=== PATIENT | male | born 1940 | race Caucasian/White ===

== ENCOUNTER 2021-01-22 10:15 | Inpatient (IN) ==
[2021-01-22] MEDS ORDERED: Albuterol 2.5 MG/3 ML NEBULIZER IH PRN (23:54)
[2021-01-23] MEDS: *HR* Enoxaparin 100 MG/ML SYRINGE SQ SCH ×2 (05:31→18:27)
[2021-01-23 06:29] LABS: Basophils % 0.2 %; Eosinophils # 0.1 K/mcL (0.0-0.6); Eosinophils % 0.9 %; Hematocrit 31.5 % (37.5-50.1); Hemoglobin 9.5 g/dL (12.9-16.9); Lymphocytes # 1.4 K/mcL (0.6-4.6); Lymphocytes % 12.1 %; Mean Corpuscular HGB Conc 30.2 g/dL (31.6-35.5); Mean Corpuscular Hemoglobin 27.4 pg (28.0-33.3); Mean Corpuscular Volume 90.8 fL (83.0-100.0); Mean Platelet Volume 10.5 fL (9.4-12.4); Monocytes % 8.7 %; Neutrophils # 8.4 K/mcL (1.6-8.9); Nucleated Red Blood Cells 0.2 /100 WBC (0); Platelet Count 194 K/mcL (140-400); Red Blood Count 3.47 M/mcL (4.19-5.50); Red Cell Distribution Width 15.9 % (11.5-14.5); Segmented Neutrophils % 75.1 %; White Blood Count 11.2 K/mcL (4.3-11.1)
[2021-01-23 06:36] LABS: INR 1.8; Prothrombin Time 20.5 Seconds (9.4-12.1)
[2021-01-23 06:39] LABS: Activated Partial Thrombo Time 36.1 Seconds (26.0-36.0)
[2021-01-23 07:00] LABS: Alanine Aminotransferase 44 Units/L (7-52); Albumin 3.2 g/dL (3.5-5.7); Albumin/Globulin Ratio 1.5 (1.1-2.2); Alkaline Phosphatase 51 Units/L (34-104); Aspartate Amino Transferase 36 Units/L (13-39); BUN/Creatinine Ratio 26 (6-26); Bilirubin,Total 0.9 mg/dL (0.3-1.0); Blood Urea Nitrogen 20 mg/dL (8-23); Calcium 8.3 mg/dL (8.6-10.3); Carbon Dioxide 34 mEq/L (23-29); Chloride 98 mEq/L (98-107); Globulin 2.1 g/dL (2.4-3.5); Glucose 76 mg/dL (70-105); Magnesium 2.2 mg/dL (1.6-2.6); Osmolality,Calculated 285 (280-300); Potassium 3.3 mEq/L (3.5-5.1); Sodium 137 mEq/L (136-145); Total Protein 5.3 g/dL (6.4-8.9); eGFR For African Americans > 60 (> 60); eGFR For Non-African Americans > 60 (> 60)
[2021-01-23] MEDS: Sacubitril/Valsartan 49/51 MG 1 TABLET PO SCH ×2 (08:09→21:43)
[2021-01-23] MEDS: GuaiFENesin Liq 200 MG/10 ML UDC PO SCH ×2 (08:09→21:44)
[2021-01-23] MEDS: Torsemide 20 MG TABLET PO SCH ×2 (08:09→16:22)
[2021-01-23] MEDS: predniSONE 20 MG TABLET PO SCH (08:09)
[2021-01-23] MEDS: Aspirin Enteric Coated 81 MG Tablet PO SCH (08:09)
[2021-01-23] MEDS: Roflumilast [Daliresp] 500 MCG PO SCH (08:10)
[2021-01-23] MEDS: *HR* GlyBURIDE 2.5 MG TABLET PO SCH (08:10)
[2021-01-23] MEDS: Finasteride 5 MG TABLET PO SCH (08:10)
[2021-01-23] MEDS: Metoprolol XL (24 HR) Succ 25 MG TAB.ER.24H PO SCH (08:10)
[2021-01-23] MEDS: Cholecalciferol (D-3) 1,000 UNIT (25MCG) TABLET PO SCH (08:11)
[2021-01-23] MEDS ORDERED: Ketorolac 30 MG/ML VIAL IM ONE (08:34)
[2021-01-23] MEDS: Tiotropium 10 INH DOSE IH SCH (08:36)
[2021-01-23] MEDS: Budesonide/Formoterol 160/4.5 1 PUFF INH IH SCH ×2 (08:37→20:12)
[2021-01-23] MEDS ORDERED: *HR* Warfarin 3 MG TABLET PO ONE (18:00)
[2021-01-23] MEDS ORDERED: Warfarin perPT PO PRN (18:00)
[2021-01-23] MEDS ORDERED: *HR* Warfarin 5 MG TABLET PO SCH (18:00)
[2021-01-23] MEDS: *HR* Enoxaparin 120 MG/0.8 ML SYRINGE SQ SCH (18:29)
[2021-01-23 21:01] LABS: Bilirubin,Urine Negative (Negative); Blood,Urine Moderate (Negative); Clarity,Urine Slightly Cloudy (Clear); Glucose,Urine (UA) Normal (Normal); Ketones,Urine Trace mg/dL (Negative); Leukocyte Esterase,Urine Large (Negative); Nitrite,Urine Negative (Negative); PH,Urine 6.5 pH Units (5.0-8.0); Protein,Urine Negative (Neg-Trace); Urobilinogen,Urine Normal (Normal)
[2021-01-23 21:02] LABS: Color,Urine Yellow (Yellow); WBC,Urine 15-30 per hpf (0-3)
[2021-01-23 21:03] LABS: Amorphous Sediment,Urine Few per hpf (None-Few); Bacteria,Urine Few per hpf (None-Few); Hyaline Casts,Urine Few per lpf (None Seen)
[2021-01-24 05:02] LABS: Hematocrit 29.9 % (37.5-50.1); Hemoglobin 8.9 g/dL (12.9-16.9); Mean Corpuscular HGB Conc 29.8 g/dL (31.6-35.5); Mean Corpuscular Hemoglobin 27.1 pg (28.0-33.3); Mean Corpuscular Volume 91.2 fL (83.0-100.0); Mean Platelet Volume 10.5 fL (9.4-12.4); Platelet Count 166 K/mcL (140-400); Prothrombin Time 21.8 Seconds (9.4-12.1); Red Blood Count 3.28 M/mcL (4.19-5.50); Red Cell Distribution Width 15.9 % (11.5-14.5); White Blood Count 9.1 K/mcL (4.3-11.1)
[2021-01-24] MEDS: *HR* Enoxaparin 120 MG/0.8 ML SYRINGE SQ SCH ×2 (05:15→17:59)
[2021-01-24 05:17] LABS: Alanine Aminotransferase 46 Units/L (7-52); Albumin 3.1 g/dL (3.5-5.7); Albumin/Globulin Ratio 1.6 (1.1-2.2); Alkaline Phosphatase 51 Units/L (34-104); Aspartate Amino Transferase 36 Units/L (13-39); BUN/Creatinine Ratio 18 (6-26); Bilirubin,Total 0.8 mg/dL (0.3-1.0); Blood Urea Nitrogen 16 mg/dL (8-23); Calcium 7.6 mg/dL (8.6-10.3); Carbon Dioxide 37 mEq/L (23-29); Chloride 101 mEq/L (98-107); Glucose 101 mg/dL (70-105); Osmolality,Calculated 295 (280-300); Sodium 142 mEq/L (136-145); Total Protein 5.1 g/dL (6.4-8.9); eGFR For African Americans > 60 (> 60); eGFR For Non-African Americans > 60 (> 60)
[2021-01-24] MEDS: Sacubitril/Valsartan 49/51 MG 1 TABLET PO SCH ×2 (07:39→22:00)
[2021-01-24] MEDS: GuaiFENesin Liq 200 MG/10 ML UDC PO SCH ×2 (07:39→21:59)
[2021-01-24] MEDS: Aspirin Enteric Coated 81 MG Tablet PO SCH (07:39)
[2021-01-24] MEDS: predniSONE 20 MG TABLET PO SCH (07:40)
[2021-01-24] MEDS: Finasteride 5 MG TABLET PO SCH (07:40)
[2021-01-24] MEDS: Torsemide 20 MG TABLET PO SCH ×2 (07:40→17:58)
[2021-01-24] MEDS: *HR* GlyBURIDE 2.5 MG TABLET PO SCH (07:40)
[2021-01-24] MEDS: Metoprolol XL (24 HR) Succ 25 MG TAB.ER.24H PO SCH (07:40)
[2021-01-24] MEDS: Roflumilast [Daliresp] 500 MCG PO SCH (07:40)
[2021-01-24] MEDS: Budesonide/Formoterol 160/4.5 1 PUFF INH IH SCH ×2 (10:16→20:10)
[2021-01-24] MEDS: Tiotropium 10 INH DOSE IH SCH (10:16)
[2021-01-24] MEDS: Sulfamethoxazole/Trimeth DS 1 EACH TABLET PO SCH ×2 (11:29→22:00)
[2021-01-24] MEDS ORDERED: *HR* Warfarin 3 MG TABLET PO ONE (18:00)
[2021-01-24] MEDS: Sennosides/Docusate Sodium TABLET PO SCH ×2 (18:02→22:00)
[2021-01-25 04:16] LABS: INR 2.1; Prothrombin Time 23.1 Seconds (9.4-12.1)
[2021-01-25] MEDS: *HR* Enoxaparin 120 MG/0.8 ML SYRINGE SQ SCH ×2 (05:46→18:06)
[2021-01-25] MEDS: Torsemide 20 MG TABLET PO SCH ×2 (09:22→18:05)
[2021-01-25] MEDS: Finasteride 5 MG TABLET PO SCH (09:22)
[2021-01-25] MEDS: *HR* GlyBURIDE 2.5 MG TABLET PO SCH (09:22)
[2021-01-25] MEDS: Metoprolol XL (24 HR) Succ 25 MG TAB.ER.24H PO SCH (09:22)
[2021-01-25] MEDS: Aspirin Enteric Coated 81 MG Tablet PO SCH (09:22)
[2021-01-25] MEDS: Sulfamethoxazole/Trimeth DS 1 EACH TABLET PO SCH ×2 (09:23→20:10)
[2021-01-25] MEDS: Sennosides/Docusate Sodium TABLET PO SCH ×2 (09:23→20:11)
[2021-01-25] MEDS: GuaiFENesin Liq 200 MG/10 ML UDC PO SCH ×2 (09:23→20:10)
[2021-01-25] MEDS: predniSONE 20 MG TABLET PO SCH (09:23)
[2021-01-25] MEDS: Sacubitril/Valsartan 49/51 MG 1 TABLET PO SCH ×2 (09:23→20:10)
[2021-01-25] MEDS: Roflumilast [Daliresp] 500 MCG PO SCH (09:23)
[2021-01-25] MEDS: Budesonide/Formoterol 160/4.5 1 PUFF INH IH SCH ×2 (09:54→21:24)
[2021-01-25] MEDS: Tiotropium 10 INH DOSE IH SCH (09:54)
[2021-01-25] MEDS ORDERED: *HR* Warfarin 2.5 MG TABLET PO ONE (18:00)
[2021-01-26 04:53] LABS: INR 2.7; Prothrombin Time 30.3 Seconds (9.4-12.1)
[2021-01-26] MEDS: *HR* Enoxaparin 120 MG/0.8 ML SYRINGE SQ SCH ×2 (05:54→16:23)
[2021-01-26] MEDS: *HR* GlyBURIDE 2.5 MG TABLET PO SCH (08:39)
[2021-01-26] MEDS: Finasteride 5 MG TABLET PO SCH (08:40)
[2021-01-26] MEDS: predniSONE 20 MG TABLET PO SCH (08:40)
[2021-01-26] MEDS: Torsemide 20 MG TABLET PO SCH ×2 (08:40→16:22)
[2021-01-26] MEDS: Metoprolol XL (24 HR) Succ 25 MG TAB.ER.24H PO SCH (08:40)
[2021-01-26] MEDS: Sulfamethoxazole/Trimeth DS 1 EACH TABLET PO SCH ×2 (08:41→21:41)
[2021-01-26] MEDS: Cholecalciferol (D-3) 1,000 UNIT (25MCG) TABLET PO SCH (08:41)
[2021-01-26] MEDS: Aspirin Enteric Coated 81 MG Tablet PO SCH (08:41)
[2021-01-26] MEDS: Sennosides/Docusate Sodium TABLET PO SCH ×2 (08:41→21:38)
[2021-01-26] MEDS: GuaiFENesin Liq 200 MG/10 ML UDC PO SCH ×2 (08:41→21:42)
[2021-01-26] MEDS: Roflumilast [Daliresp] 500 MCG PO SCH (08:41)
[2021-01-26] MEDS: Sacubitril/Valsartan 49/51 MG 1 TABLET PO SCH ×2 (08:41→21:39)
[2021-01-26] MEDS: Tiotropium 10 INH DOSE IH SCH (08:50)
[2021-01-26] MEDS: Budesonide/Formoterol 160/4.5 1 PUFF INH IH SCH ×2 (08:51→21:08)
[2021-01-26] MEDS: ALPRAZolam 0.25 MG TABLET PO PRN (16:26)
[2021-01-27] MEDS: ALPRAZolam 0.25 MG TABLET PO PRN ×2 (00:29→22:37)
[2021-01-27 04:46] LABS: INR 2.7
[2021-01-27] MEDS: *HR* Enoxaparin 120 MG/0.8 ML SYRINGE SQ SCH (04:54)
[2021-01-27] MEDS: *HR* GlyBURIDE 2.5 MG TABLET PO SCH (08:33)
[2021-01-27] MEDS: GuaiFENesin Liq 200 MG/10 ML UDC PO SCH ×2 (08:33→22:27)
[2021-01-27] MEDS: Aspirin Enteric Coated 81 MG Tablet PO SCH (08:33)
[2021-01-27] MEDS: Torsemide 20 MG TABLET PO SCH ×2 (08:33→16:35)
[2021-01-27] MEDS: Sacubitril/Valsartan 49/51 MG 1 TABLET PO SCH ×2 (08:34→22:28)
[2021-01-27] MEDS: Sennosides/Docusate Sodium TABLET PO SCH ×2 (08:34→22:27)
[2021-01-27] MEDS: Sulfamethoxazole/Trimeth DS 1 EACH TABLET PO SCH ×2 (08:34→22:27)
[2021-01-27] MEDS: Finasteride 5 MG TABLET PO SCH (08:34)
[2021-01-27] MEDS: Metoprolol XL (24 HR) Succ 25 MG TAB.ER.24H PO SCH (08:34)
[2021-01-27] MEDS: Roflumilast [Daliresp] 500 MCG PO SCH (08:35)
[2021-01-27] MEDS: predniSONE 20 MG TABLET PO SCH (08:35)
[2021-01-27] MEDS: Budesonide/Formoterol 160/4.5 1 PUFF INH IH SCH ×2 (10:05→20:34)
[2021-01-27] MEDS: Tiotropium 10 INH DOSE IH SCH (10:05)
[2021-01-27] MEDS ORDERED: *HR* Warfarin 1 MG TABLET PO ONE (18:00)
[2021-01-28 06:26] LABS: INR 2.3
[2021-01-28] MEDS: Tiotropium 10 INH DOSE IH SCH (09:09)
[2021-01-28] MEDS: Budesonide/Formoterol 160/4.5 1 PUFF INH IH SCH ×2 (09:10→20:34)
[2021-01-28] MEDS: GuaiFENesin Liq 200 MG/10 ML UDC PO SCH ×2 (09:36→23:58)
[2021-01-28] MEDS: *HR* GlyBURIDE 2.5 MG TABLET PO SCH (09:37)
[2021-01-28] MEDS: Torsemide 20 MG TABLET PO SCH ×2 (09:37→17:17)
[2021-01-28] MEDS: predniSONE 20 MG TABLET PO SCH (09:38)
[2021-01-28] MEDS: Sulfamethoxazole/Trimeth DS 1 EACH TABLET PO SCH ×2 (09:38→23:58)
[2021-01-28] MEDS: Finasteride 5 MG TABLET PO SCH (09:38)
[2021-01-28] MEDS: Aspirin Enteric Coated 81 MG Tablet PO SCH (09:38)
[2021-01-28] MEDS: Metoprolol XL (24 HR) Succ 25 MG TAB.ER.24H PO SCH (09:38)
[2021-01-28] MEDS: Sacubitril/Valsartan 49/51 MG 1 TABLET PO SCH ×2 (09:38→23:58)
[2021-01-28] MEDS: Roflumilast [Daliresp] 500 MCG PO SCH (09:38)
[2021-01-28] MEDS: Sennosides/Docusate Sodium TABLET PO SCH ×2 (09:38→23:58)
[2021-01-28] MEDS ORDERED: *HR* Warfarin 2.5 MG TABLET PO ONE (18:00)
[2021-01-29] MEDS: ALPRAZolam 0.25 MG TABLET PO PRN (00:22)
[2021-01-29 06:33] LABS: INR 2.4; Prothrombin Time 27.1 Seconds (9.4-12.1)
[2021-01-29 06:55] LABS: Hematocrit 22.9 % (37.5-50.1); Mean Corpuscular HGB Conc 30.6 g/dL (31.6-35.5); Mean Corpuscular Hemoglobin 27.6 pg (28.0-33.3); Mean Corpuscular Volume 90.2 fL (83.0-100.0); Mean Platelet Volume 10.7 fL (9.4-12.4); Platelet Count 242 K/mcL (140-400); Red Blood Count 2.54 M/mcL (4.19-5.50); White Blood Count 21.6 K/mcL (4.3-11.1)
[2021-01-29 06:59] LABS: Albumin 3.4 g/dL (3.5-5.7); Albumin/Globulin Ratio 1.5 (1.1-2.2); Bilirubin,Total 1.3 mg/dL (0.3-1.0); Calcium 8.2 mg/dL (8.6-10.3); Globulin 2.3 g/dL (2.4-3.5); Magnesium 2.6 mg/dL (1.6-2.6); Potassium 6.6 mEq/L (3.5-5.1); Total Protein 5.7 g/dL (6.4-8.9)
[2021-01-29] MEDS: Roflumilast [Daliresp] 500 MCG PO SCH (08:40)
[2021-01-29] MEDS: Torsemide 20 MG TABLET PO SCH (09:11)
[2021-01-29] MEDS: Metoprolol XL (24 HR) Succ 25 MG TAB.ER.24H PO SCH (09:11)
[2021-01-29] MEDS: Sennosides/Docusate Sodium TABLET PO SCH (09:11)
[2021-01-29] MEDS: predniSONE 20 MG TABLET PO SCH (09:12)
[2021-01-29] MEDS: *HR* GlyBURIDE 2.5 MG TABLET PO SCH (09:12)
[2021-01-29] MEDS: Sulfamethoxazole/Trimeth DS 1 EACH TABLET PO SCH (09:13)
[2021-01-29] MEDS: Sacubitril/Valsartan 49/51 MG 1 TABLET PO SCH (09:13)
[2021-01-29] MEDS: GuaiFENesin Liq 200 MG/10 ML UDC PO SCH (09:13)
[2021-01-29] MEDS: Finasteride 5 MG TABLET PO SCH (09:13)
[2021-01-29] MEDS: Aspirin Enteric Coated 81 MG Tablet PO SCH (09:13)
[2021-01-29] MEDS: Tiotropium 10 INH DOSE IH SCH (09:35)
[2021-01-29] MEDS ORDERED: Insulin Human Regular 10 UNIT in 0.9 % Sodium Chloride 10 ML IV ONE (10:17)
[2021-01-29] MEDS ORDERED: Calcium Gluconate 1gm/50mL 1 GM/50 ML BAG IVPB ONE (10:17)
[2021-01-29] MEDS ORDERED: *HR* Dextrose 50 % in Water (Vial) 50 ML VIAL IVP ONE (10:18)
[2021-01-29] MEDS: Budesonide/Formoterol 160/4.5 1 PUFF INH IH SCH (10:20)
[2021-01-29] MEDS ORDERED: 0.9 % Sodium Chloride 500 ML IVC ONE (11:41)
[2021-01-29] MEDS ORDERED: 0.9 % Sodium Chloride 1,000 ML IVC SCH (11:45)
[2021-01-29 11:55] LABS: Calcium 8.2 mg/dL (8.6-10.3); Magnesium 2.6 mg/dL (1.6-2.6); Potassium 6.6 mEq/L (3.5-5.1)
[2021-01-29 12:07] VITALS: RESP 19
[2021-01-29] MEDS ORDERED: *HR* Dextrose 50 % in Water (Syg) 50 ML SYRINGE IVP ONE (12:24)
[2021-01-29] MEDS ORDERED: 0.9 % Sodium Chloride 250 ML ONE (13:03)
[2021-01-29 13:39] VITALS: BP 101/61; PULSE 84; TEMP 97.8; O2SAT 95
[2021-01-29] MEDS ORDERED: *HR* Warfarin 2.5 MG TABLET PO ONE (18:00)
== END 2021-01-29 14:50 | disposition short-term general hospital (02) | DRG 949 ==
LOC: INPGRE 22:29
PROVIDERS: ADMIT Family Medicine; ATTEND Family Medicine